=== PATIENT | female | born 1985 | race Caucasian/White ===

== ENCOUNTER 2017-10-22 00:38 | Emergency (ER) | payer SELFPAY ==
[2017-10-22 00:39] VITALS: BMI 27.5
[2017-10-22 01:37] VITALS: RESP 18; TEMP 98
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
[2017-10-22 05:05] VITALS: BP 125/80; PULSE 68; O2SAT 100
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
== END 2017-10-22 03:45 | disposition home or self-care (01) ==
LOC: ED 00:38
DX: S16.1XXA Strain of muscle, fascia and tendon at neck level, initial encounter (principal); S39.012A Strain of muscle, fascia and tendon of lower back, initial encounter; V43.62XA Car passenger injured in collision with other type car in traffic accident, initial encounter; Y92.410 Unspecified street and highway as the place of occurrence of the external cause